=== PATIENT | male | born 1965 | race Caucasian/White ===

== ENCOUNTER 2016-09-20 23:40 | Emergency (ER) | payer OTHER ==
[~2016-09-20] VITALS: Ht 175.3 cm; Wt 102.1 kg
[~2016-09-20 23:40] MED LIST: CYCLOBENZAPRINE10 M1 PO; KEFLEX500 MG PO; MOTRIN800 MG PO; PROVENTIL0.09 MG/A1 INH; TRAMADOL HCL50 M1 PO
[2016-09-21 01:47] VITALS: BP 132/81
--- NOTE | 2016-09-21 01:56 | ED NECK/BACK PAIN COMPLAINT ---
History of Present Illness General Chief Complaint: General Adult Stated Complaint: COCCYX PAIN Source: patient Exam Limitations: no limitations Vital Signs & Intake/Output Vital Signs & Intake/Output Vital Signs Date Time Temp Pulse Resp B/P B/P Pulse O2 O2 Flow FiO2 Mean Ox Delivery Rate 09/21 0147 98.4 79 18 132/81 97 Room Air 09/21 0100 97.9 75 138/71 96 Room Air Allergies Coded Allergies: NO KNOWN ALLERGIES (08/04/10) Reconcile Medications Cyclobenzaprine HCl 10 MG TABLET 1 TAB PO Q8P SPASMS Cyclobenzaprine HCl 10 MG TABLET 1 TAB PO 4 TIMES/DAY PRN MUSCLE SPASM Ibuprofen 800 MG TABLET 1 TAB PO TID PRN pain Tramadol HCl 50 MG TABLET 1-2 TAB PO Q6P PRN PAIN Triage Note: PT FROM HOME C/O COCCYX PAIN. PT STATES "SUNDAY I WAS LIFTING A BOX AND I HEAD MY BOTTOM, I DONT KNOW, I DIDNT PASS OUT I DONT THINK, I DONT DRINK OR ANYTHING. I TOOK A FEW ADVIL AND I WAS ABLE TO MOVE AND THEN THE NEXT DAY I WAS UNABLE TO WALK" PT STATES "I TOOK ADVIL AROUND 8 IN THE MORNING I WAS SUPPOSE TO GO TO WORK AND I COULDNT." PT STORY SEEMS JUMBLED AND PT UNSURE OF STORY. Triage Nurses Notes Reviewed? yes Onset: Abrupt Duration: hour(s):, day(s):, getting worse Location: coccyx Radiation: none Context: bending over and lifting at work. HPI: 51 yo gentleman in prior good health with lower back pain x 3 days, worse afte lifting heavy boxes, "some are almost 100 pounds," at work and at home. "I bent over 3 days ago and felt a stretching in back... it really hurt." He notes no radiation, no focal weaknes, and is otherwise well. Past History Travel History Traveled to [place] past 21 day No Medical History Any Pertinent Medical History? see below for history Neurological: NONE EENT: NONE Cardiovascular: NONE Respiratory: NONE Gastrointestinal: NONE Hepatic: NONE Renal: NONE Musculoskeletal: NONE Psychiatric: NONE Endocrine: NONE Blood Disorders: NONE Surgical History Surgical History: non-contributory Psychosocial History What is your primary language Togolese Tobacco Use: Current Daily Use Daily Tobacco Use Amount/Type: => 5 Cigarettes daily ETOH Use: denies use Illicit Drug Use: denies illicit drug use Family History Hx Contributory? No Review of Systems Review of Systems Constitutional: Reports: no symptoms. Eyes: Reports: no symptoms. Ears, Nose, Throat, Mouth: Reports: no symptoms. Respiratory: Reports: no symptoms. Cardiovascular: Reports: no symptoms. Gastrointestinal/Abdominal: Reports: no symptoms. Musculoskeletal: Reports: no symptoms. Skin: Reports: no symptoms. Neurological/Psychological: Reports: no symptoms. All Other Systems: Reviewed and Negative Physical Exam Physical Exam General Appearance: well developed/nourished, mild distress Head: atraumatic Eyes: Bilateral: normal appearance. Ears, Nose, Throat, Mouth: hearing grossly normal Neck: normal inspection, supple, full range of motion, normal alignment, abnormal alignment Respiratory: normal breath sounds Cardiovascular: regular rate/rhythm Gastrointestinal: soft, non-tender Back: normal inspection, no vertebral tenderness, focal spasm in left lower lumbar region. Extremities: normal range of motion Straight Leg Raising: Right: Negative. Left: Negative. Neurologic/Psych: awake, alert, oriented x 3, normal mood/affect Skin: intact, normal color, warm/dry Progress Differential Diagnosis: herniated discs vs myfoascial pain Plan of Care: Current Medications Sig/Joyce Start time Last Medication Dose Stop Time Status Admin Cyclobenzaprine HCl 10 MG ONCE ONE 09/21 214 CAN (Flexeril 10MG Tab) 09/22 215 Departure Departure Disposition: HOME OR SELF CARE Condition: Stable Clinical Impression Primary Impression: Coccyx pain Referrals: PATIENT HAS NO PRIMARY CARE DR (PCP/Family) Departure Forms: Customer Survey General Discharge Information Prescriptions: Current Visit Scripts Ibuprofen 1 TAB PO TID PRN pain #60 TAB Cyclobenzaprine HCl 1 TAB PO 4 TIMES/DAY PRN MUSCLE SPASM #30 TAB Ref 1 Comments pt safe for discharge.. benign exam... close follow up advised.
[2016-09-21] MEDS ORDERED: IBUPROFEN800 M1 PO (02:13)
[2016-09-21] MEDS ORDERED: CYCLOBENZAPRINE10 M1 PO (02:13)
== END 2016-09-21 02:30 ==
LOC: ERH 23:40
DX: M53.3 Sacrococcygeal disorders, not elsewhere classified (principal)

== ENCOUNTER 2017-06-27 00:45 | Emergency (ER) | payer OTHER ==
[~2017-06-27 00:45] MED LIST changes: +IBUPROFEN800 M1 PO
--- NOTE | 2017-06-27 00:51 | ED GENERAL ADULT ---
History of Present Illness General Chief Complaint: General Adult Stated Complaint: BIBA PT C/O " FLU LIKE SYMPTOMS" Source: patient Exam Limitations: no limitations Vital Signs & Intake/Output Vital Signs & Intake/Output , Allergies Coded Allergies: NO KNOWN ALLERGIES (08/04/10) Reconcile Medications Cyclobenzaprine HCl 10 MG TABLET 1 TAB PO Q8P SPASMS Cyclobenzaprine HCl 10 MG TABLET 1 TAB PO 4 TIMES/DAY PRN MUSCLE SPASM Ibuprofen 800 MG TABLET 1 TAB PO TID PRN pain Tramadol HCl 50 MG TABLET 1-2 TAB PO Q6P PRN PAIN Triage Nurses Notes Reviewed? yes Onset: Gradual Duration: day(s): Timing: recent history Injury Environment: home Severity: mild, moderate Modifying Factors: Improves With: rest. Associated Symptoms: nausea, vomiting, diarrhea. HPI: 51 yo gentleman in prior good health presents with 1 day history of nausea, vomiting, diarrhea. Past History Medical History Any Pertinent Medical History? see below for history Neurological: NONE EENT: NONE Cardiovascular: NONE Respiratory: NONE Gastrointestinal: NONE Hepatic: NONE Renal: NONE Musculoskeletal: NONE Psychiatric: NONE Endocrine: NONE Blood Disorders: NONE Surgical History Surgical History: non-contributory Psychosocial History What is your primary language Guatemalan Family History Hx Contributory? No Review of Systems Review of Systems Constitutional: Reports: no symptoms. EENTM: Reports: no symptoms. Respiratory: Reports: no symptoms. Cardiovascular: Reports: no symptoms. GI: Reports: no symptoms. Genitourinary: Reports: no symptoms. Musculoskeletal: Reports: no symptoms. Skin: Reports: no symptoms. Neurological/Psychological: Reports: no symptoms. Hematologic/Endocrine: Reports: no symptoms. Immunologic/Allergic: Reports: no symptoms. All Other Systems: Reviewed and Negative Physical Exam Physical Exam General Appearance: well developed/nourished, no apparent distress Head: atraumatic, normal appearance Eyes: Bilateral: normal appearance. Ears, Nose, Throat: normal pharynx, normal ENT inspection Neck: normal inspection, supple, full range of motion Respiratory: normal breath sounds, chest non-tender, no respiratory distress, quiet respiration, lungs clear Cardiovascular: regular rate/rhythm Gastrointestinal: normal bowel sounds, soft, non-tender, no organomegaly Back: normal inspection, normal range of motion Extremities: normal inspection, normal capillary refill, normal range of motion, no edema Neurologic/Psych: no motor/sensory deficits, awake, alert, oriented x 3 Skin: intact, normal color, warm/dry Core Measures ACS in differential dx? No CVA/TIA Diagnosis: No Sepsis Present: No Sepsis Focused Exam Completed? No Progress Differential Diagnoses I considered the following diagnoses in my evaluation of the patient: viral syndrome vs food poisoning vs other. Plan of Care: Orders Procedure Date/time Status RAPID VIRAL INFLUENZA A 06/27 52 Active TROPONIN LEVEL 06/27 52 Active LIPASE 06/27 52 Active HEPATIC FUNCTION PANEL 06/27 52 Active CBC WITHOUT DIFFERENTIAL 06/27 52 Complete BASIC METABOLIC PANEL 06/27 52 Active AMYLASE 06/27 52 Active EKG 06/27 52 Active Laboratory Tests 06/27/17 0130: Sodium Pending, Potassium Pending, Chloride Pending, Carbon Dioxide Pending, Anion Gap Pending, BUN Pending, Creatinine Pending, BUN/Creatinine Ratio Pending , Glucose Pending, Calcium Pending, Total Bilirubin Pending, Direct Bilirubin Pending, AST Pending, ALT Pending, Alkaline Phosphatase Pending, Troponin I Pending, Total Protein Pending, Albumin Pending, Amylase Pending, Lipase Pending , CBC w Diff NO MAN DIFF REQ, RBC 4.81, MCV 94.2 H, MCH 31.7 H, MCHC 33.7, RDW 12.9, MPV 8.6, Gran % 73.4, Lymphocytes % 13.8 L, Monocytes % 11.9 H, Eosinophils % 0.7, Basophils % 0.2, Absolute Granulocytes 5.7, Absolute Lymphocytes 1.1 L, Absolute Monocytes 0.9 H, Absolute Eosinophils 0.1, Absolute Basophils 0 Microbiology 06/27 52 NASOPHARYN: Influenza Virus A & B Rapid Smear - ORD Initial ED EKG: nsr, biphasic p, no acute changes. Departure Departure Disposition: HOME OR SELF CARE Condition: Stable Clinical Impression Primary Impression: Nausea and vomiting Secondary Impressions: Diarrhea, Gastroenteritis Referrals: Patient Has No Primary Care Dr (PCP/Family) Departure Forms: Customer Survey General Discharge Information Comments pt feeling well at discharge... non tender abdomen on exam x 2... benign labs/ xray... pt feels comfortable going home... close follow up advised. Critical Care Note Critical Care Note Critical Care Time: non-applicable
[2017-06-27 01:15] VITALS: BP 1408/72
--- NOTE | 2017-06-27 01:28 | RADIOLOGY REPORT ---
EXAMINATION: XR PORTABLE CHEST CLINICAL INFORMATION: Chest pain COMPARISON: 08/07/2008 TECHNIQUE: Portable frontal view of the chest was obtained. FINDINGS: The patient is rotated to the right. The lungs are well expanded. There is no focal consolidation, edema, or effusion. No pneumothorax. The cardiomediastinal silhouette is within normal limits. No acute osseous abnormality. IMPRESSION: No acute pulmonary findings.
[2017-06-27 02:12] LABS: ABSOLUTE BASOPHIL COUNT 0 /CUMM (0.0-0.2); ABSOLUTE EOSINOPHIL COUNT 0.1 /CUMM (0.0-0.7); ABSOLUTE GRANULOCYTE CT 5.7 /CUMM (1.4-6.5); ABSOLUTE LYMPH COUNT 1.1 /CUMM (1.2-3.4); ABSOLUTE MONOCYTE COUNT 0.9 /CUMM (0.10-0.60); BASOPHIL % 0.2 % (0.0-2.0); EOSINOPHIL % 0.7 % (0-5); GRANULOCYTE % 73.4 % (42.2-75.2); HEMATOCRIT 45.3 % (42-52); MEAN CORPUSCULAR HGB 31.7 PG (27.0-31.0); MEAN CORPUSCULAR HGB CONC 33.7 G/DL (33.0-37.0); MEAN CORPUSCULAR VOLUME 94.2 FL (80.0-94.0); MEAN PLATELET VOLUME 8.6 FL (7.4-10.4); PLATELET COUNT 276 /CUMM (130-400); RBC DISTRIBUTION WIDTH 12.9 % (11.5-14.5); RED BLOOD CELL CT 4.81 /CUMM (4.70-6.10); WHITE BLOOD CELL COUNT 7.7 /CUMM (4.8-10.8)
== END 2017-06-27 03:10 ==
LOC: ERH 00:45
PROVIDERS: Pediatrics
DX: K52.9 Noninfective gastroenteritis and colitis, unspecified (principal)
CPT/HCPCS: 71045; 87804; 87804-59; 93005; 93010

== ENCOUNTER 2017-09-16 20:39 | Emergency (ER) | payer SELFPAY ==
[~2017-09-16] VITALS: Ht 175.3 cm; Wt 102.1 kg
--- NOTE | 2017-09-16 23:27 | ED GENERAL ADULT ---
History of Present Illness General Chief Complaint: General Adult Stated Complaint: "COUGH,GREEN PHLEM,CONGESTED" Source: patient, family Exam Limitations: no limitations Vital Signs & Intake/Output Vital Signs & Intake/Output Vital Signs Date Time Temp Pulse Resp B/P B/P Pulse O2 O2 Flow FiO2 Mean Ox Delivery Rate 09/16 2044 97.3 71 20 131/74 96 Room Air Allergies Coded Allergies: NO KNOWN ALLERGIES (08/04/10) Reconcile Medications Albuterol Sulfate (Ventolin Hfa) 90 MCG HFA.AER.AD 2 PUF INH Q4-6 PRN PRN WHEEZE/COUGH Amoxicillin/Potassium Clav (Augmentin 875-125 Tablet) 875 MG-125 MG TABLET 1 TAB PO BID BRONCHITIS Benzonatate (Tessalon Perle) 100 MG CAPSULE 1 CAP PO TID COUGH Cyclobenzaprine HCl 10 MG TABLET 1 TAB PO Q8P SPASMS Cyclobenzaprine HCl 10 MG TABLET 1 TAB PO 4 TIMES/DAY PRN MUSCLE SPASM Ibuprofen 800 MG TABLET 1 TAB PO TID PRN pain Tramadol HCl 50 MG TABLET 1-2 TAB PO Q6P PRN PAIN Triage Note: PT TO TRIAGE C/O CONGESTION, PRODUCTIVE GREEN COUGH X A COUPLE DAYS. NO ACUTE RESP DISTRESS NOTED. Triage Nurses Notes Reviewed? yes Onset: Gradual Duration: day(s):, waxing and waning Timing: recent history Injury Environment: home Severity: mild Modifying Factors: Improves With: rest. Associated Symptoms: cough HPI: 52-year-old gentleman in prior good health, history of cigarette smoking, presents with 3-4 days of cough productive of green sputum. He is here with his brother who presents with similar symptoms. He has no fever chills wheezing nausea vomiting chest pain diarrhea, runny nose. He is otherwise well Past History Travel History Traveled to [place] past 21 day No Medical History Any Pertinent Medical History? 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 No Review of Systems Review of Systems Constitutional: Denies: see HPI. Physical Exam Physical Exam General Appearance: well developed/nourished Comments: Review of Systems - except as otherwise noted in HPI Review of Systems Constitutional:no symptoms. EENTM:no symptoms. Respiratory:no symptoms. Cardiovascular:no symptoms. GI:no symptoms. Genitourinary:no symptoms. Musculoskeletal:no symptoms. Skin:no symptoms. Neurological/Psychological:no symptoms. Hematologic/Endocrine:no symptoms. Immunologic/Allergic:no symptoms. All Other Systems: Reviewed and Negative Physical Exam Physical Exam General Appearance: well developed/nourished, no apparent distress Head: atraumatic, normal appearance Eyes: Bilateral: normal appearance. Ears, Nose, Throat: normal pharynx, normal ENT inspection Neck: normal inspection, supple, full range of motion Respiratory: normal breath sounds, chest non-tender, no respiratory distress, mild rhonchi Cardiovascular: regular rate/rhythm Gastrointestinal: normal bowel sounds, soft, non-tender, no organomegaly Back: normal inspection, normal range of motion Extremities: normal inspection, normal capillary refill, normal range of motion, no edema Neurologic/Psych: no motor/sensory deficits, awake, alert, oriented x 3 Skin: intact, normal color, warm/dry Core Measures ACS in differential dx? No CVA/TIA Diagnosis: No Sepsis Present: No Sepsis Focused Exam Completed? No Progress Differential Diagnoses I considered the following diagnoses in my evaluation of the patient: Bronchitis versus URI versus allergies versus other Plan of Care: Prescription for Augmentin and Tessalon Perles sent to pharmacy. Close follow- up advised Initial ED EKG: none Departure Departure Disposition: HOME OR SELF CARE Condition: Stable Clinical Impression Primary Impression: Bronchitis Referrals: Patient Has No Primary Care Dr (PCP/Family) Departure Forms: Customer Survey General Discharge Information Prescriptions: Current Visit Scripts Amoxicillin/Potassium Clav (Augmentin 875-125 Tablet) 1 TAB PO BID #20 TAB Benzonatate (Tessalon Perle) 1 CAP PO TID #30 CAP Albuterol Sulfate (Ventolin Hfa) 2 PUF INH Q4-6 PRN PRN WHEEZE/COUGH #1 INHAL Critical Care Note Critical Care Note Critical Care Time: non-applicable
[2017-09-16] MEDS ORDERED: TESSALON PERLE100 M1 PO (23:33)
[2017-09-16] MEDS ORDERED: VENTOLIN HFA18 GM INH (23:33)
[2017-09-16] MEDS ORDERED: AUGMENTIN 875-1 EACH PO (23:33)
[2017-09-17 00:16] VITALS: BP 128/72
== END 2017-09-17 00:32 ==
LOC: ERH 20:39
DX: J40 Bronchitis, not specified as acute or chronic (principal); F17.210 Nicotine dependence, cigarettes, uncomplicated